=== PATIENT | female | born 1965 | race Caucasian/White ===

== ENCOUNTER → 2017-09-02 | Outpatient (CLI) | payer BC | LOC: BMCIMAGING 15:17 | PROVIDERS: ATTEND Internal Medicine | DX: J98.09 Other diseases of bronchus, not elsewhere classified (principal) ==

== ENCOUNTER → 2017-12-10 | Outpatient (CLI) | payer BC | LOC: FIMAGING 11:20 | PROVIDERS: ATTEND Internal Medicine | DX: Z12.31 Encounter for screening mammogram for malignant neoplasm of breast (principal) ==

== ENCOUNTER 2018-12-23 15:08 | Emergency (ER) | payer BC ==
[2018-12-23 15:18] VITALS: BP 118/89
--- NOTE | 2018-12-23 15:20 | EDPHY ---
H & P Stated Complaint: dog bite Time Seen by Provider: 12/23/18 15:20 - Personal History Current Tetanus/Diphtheria Vaccine: Unsure Current Tetanus Diphtheria and Acellular Pertussis (TDAP): Unsure - Medical/Surgical History Hx Asthma: Yes Hx Chronic Respiratory Disease: No Hx Diabetes: No Hx Cardiac Disease: No Hx Renal Disease: No Hx Cirrhosis: No Hx Alcoholism: No Hx HIV/AIDS: No Hx Splenectomy or Spleen Trauma: No Other PMH: asthma, hysterectomy, L knee surgery x3, - Social History Smoking Status: Never smoked Constitutional: Initial Vital Signs Temperature (C) 37 C 12/23/18 15:15 Heart Rate 85 12/23/18 15:15 Respiratory Rate 18 12/23/18 15:15 Blood Pressure 118/89 H 12/23/18 15:15 O2 Sat (%) 94 12/23/18 15:15 O2 Delivery Mode Room Air Allergies/Adverse Reactions: Sulfa (Sulfonamide Antibiotics) Allergy (Verified 12/23/18 15:14) Home Medications: Medication Instructions Recorded Amoxicillin/Clavulanate Pot 875 mg PO BID #20 tab 12/23/18 [Augmentin 875 MG TAB (RX)] Estradiol 12/23/18 Nasonex 12/23/18 Vitamin B12 12/23/18 Medical Decision Making ED Course/Re-evaluation: CHIEF COMPLAINT: Dog bite HISTORY OF PRESENT ILLNESS: The patient is a 53 y/o female with a history of asthma complaining of a dog bite to her right thigh. She was hiking up [facility], when a dog lunged at her. She initially thought that the dog just nipped her, but then realized that she was actually bit. She does not know if the dog was vaccinated. Due to the unknown vaccination status, she presented to the emergency department for rabies exposure precautions. No fever, headache, body aches, lightheadedness, chest pain, heart palpitations, shortness of breath, cough, abdominal pain, urinary or bowel complaints, numbness, paresthesias. REVIEW OF SYSTEMS: A comprehensive 10 system review of systems is otherwise negative aside from elements mentioned in the history of present illness and medical decision making. PHYSICAL EXAM: HR, BP, O2 Sat, RR. Temp noted General Appearance: Alert, well hydrated, appropriate, and non-toxic appearing. Head: Atraumatic without scalp tenderness or obvious injury Eyes: Pupils equal, round, reactive to light and accommodation, EOMI, no trauma , no injection. Ears: Clear bilaterally, no perforation, normal landmarks Nose: Atraumatic, no rhinorrhea, clear. Throat: There is no erythema or exudates, no lesions, normal tonsils, mucus membranes moist. Neck: Supple, 2+ carotid upstroke, nontender, no lymphadenopathy. Respiratory: No retractions, no distress, no wheezes, and no accessory muscle use. Lungs are clear to auscultation bilaterally. Cardiovascular: Regular rate and rhythm, no murmurs, rubs, or gallops. Bilateral carotid, radial, dorsalis pedis, and posterior tibial pulses intact. Good capillary refill all extremities. Gastrointestinal: Abdomen is soft, nontender, non-distended, no masses, no rebound, no guarding, no peritoneal signs. Musculoskeletal: Normal active ROM of all extremities, atraumatic. Neurological: Alert, appropriate, and interactive. The patient has normal DTRs and non-focal cranial nerves, motor, sensory, and cerebellar exam. Skin: Superficial single puncture wound to external right thigh. No rashes, good turgor, no nodules on palpation. Past medical history: Asthma Past surgical history: Hysterectomy, left knee surgery x3 Family history: Denies Social history: , employed, lives in [place] DIAGNOSTICS/PROCEDURES/CRITICAL CARE TIME: Not indicated. DIFFERENTIAL DIAGNOSIS: The differential diagnosis for the patient's dog bite included but was not limited to puncture wound, rabies exposure, dog bite, laceration, abrasion, skin tear, contusion, hematoma, ligamentous injury, muscular strain. MEDICAL DECISION MAKING: The patient is a 53 y/o female with a history of asthma presenting with a dog bite to her right thigh. She does not know if the dog was vaccinated. On exam there is a superficial single puncture wound to the external right thigh. She will not need sutures. Due to the unknown vaccination status, we will need to treat the patient for rabies exposure. Immunoglobulin administered to the wound. She will also receive her first does of the rabies vaccination. I have advised her to follow up with the [facility] for the three subsequent vaccinations. I have also prescribed her Augmentin; her first dose was given prior to discharge. Return precautions provided; patient is comfortable with this plan. Departure - Departure Disposition: Home, Routine, Self-Care Clinical Impression: Rabies exposure Dog bite Qualifiers: Encounter type: initial encounter Qualified Code(s): W54.0XXA - Bitten by dog, initial encounter Condition: Good Instructions: Rabies Vaccine (By injection), Rabies Immune Globulin (By injection), Animal Bite (ED), Rabies (ED), Rabies Vaccine (ED) Additional Instructions: 1. You received the one time injection of the rabies immunoglobulin. 2. You will need to receive the rabies vaccination on days 0, 3, 7, and 14. You received day 0 in the emergency department. Please go to [facility] or [facility] for the additional vaccinations. 3. Take Augmentin as prescribed. Make sure to take the entire dose. 4. Follow-up with your primary doctor within 72 hours. 5. Return to the Emergency Department for fever, redness, discharge from wound, increasing pain or other worsening of condition. Referrals: Klaudia Leiva MD [Primary Care Provider] - As per Instructions [facility] (ED,. [Edm Groups for Call Sched] - As per Instructions Prescriptions: Amoxicillin/Clavulanate Pot [Augmentin 875 MG TAB (RX)] 875 mg PO BID #20 tab Report Scribed for: Daniel Shea Report Scribed by: Rylee Templeton Date of Report: 12/23/18 Time of Report: 15:34
[2018-12-23] MEDS ORDERED: RABIES IMMUNE GLOBULIN/PF 300 UNIT/ML VIAL IF ONE (15:26)
[2018-12-23] MEDS ORDERED: RABIES VACC, HUMAN DIPLOID/PF 2.5 UNIT VIAL (RABAVERT) IM ONE (15:26)
[2018-12-23] MEDS ORDERED: AMOXICILLIN/CLAVULANATE POT 875/125 MG TAB PO ONE (15:28)
== END 2018-12-23 16:18 | disposition home or self-care (01) ==
DX: S71.131A Puncture wound without foreign body, right thigh, initial encounter (principal); Z20.3 Contact with and (suspected) exposure to rabies; W54.0XXA Bitten by dog, initial encounter; Y93.01 Activity, walking, marching and hiking; Y92.828 Other wilderness area as the place of occurrence of the external cause; Z23 Encounter for immunization